=== PATIENT | male | born 1980 | race Caucasian/White ===

== ENCOUNTER 2021-03-10 10:01 | Inpatient (IN) ==
[2021-03-10] MEDS ORDERED: *HR* Propofol 200 MG/20 ML VIAL IVP ONE (11:05)
[2021-03-10] MEDS ORDERED: *HR* FentaNYL (PF) 100 MCG/2 ML VIAL ONE (11:05)
[2021-03-10] MEDS ORDERED: Lidocaine -MPF 2% 5 ML VIAL ONE (11:05)
[2021-03-10] MEDS ORDERED: *HR* Midazolam HCl 2 MG/2 ML VIAL ONE (11:05)
[2021-03-10] MEDS ORDERED: Albuterol 2.5 MG/3 ML NEBULIZER IH ONE (11:15)
[2021-03-10] MEDS ORDERED: *HR* OxyCODONE Immed Rel 5 MG TABLET PO ONE (11:15)
[2021-03-10] MEDS ORDERED: *HR* HYDROmorphone PF 0.5 MG/0.5 ML SYRINGE IVP PRN (11:15)
[2021-03-10] MEDS ORDERED: *HR* FentaNYL (PF) 100 MCG/2 ML VIAL IVP PRN (11:15)
[2021-03-10] MEDS ORDERED: Ondansetron 4 MG/2 ML VIAL IVP PRN ×2 (11:15→13:31)
[2021-03-10] MEDS ORDERED: Lidocaine/EPI 1:100k 1% 30 ML VIAL ONE (11:38)
[2021-03-10] MEDS ORDERED: Vancomycin 1,000 MG VIAL ONE (12:11)
[2021-03-10] MEDS ORDERED: Ketamine HCL *QUVA* 50mg (1mL) SYRINGE ONE (12:24)
[2021-03-10] MEDS ORDERED: *HR* HYDROMORPHONE 2 MG/ML VIAL ONE (12:39)
[2021-03-10] MEDS ORDERED: Ondansetron 4 MG/2 ML VIAL ONE (12:47)
[2021-03-10] MEDS ORDERED: Ketorolac 30 MG/ML VIAL ONE (12:47)
[2021-03-10] MEDS ORDERED: Naloxone 0.4 MG/ML INJ IVP PRN ×2 (13:05→13:31)
[2021-03-10] MEDS ORDERED: HYDROcodone BIT/Homatropine 5 MG TABLET PO PRN (13:05)
[2021-03-10] MEDS ORDERED: *HR* Promethazine 25 MG/ML VIAL IM PRN (13:31)
[2021-03-10] MEDS ORDERED: MOM Conc 10 ML UD.LIQ PO PRN (13:31)
[2021-03-10] MEDS ORDERED: Sennosides 8.6 MG TABLET PO PRN (13:31)
[2021-03-10] MEDS ORDERED: Ketorolac 30 MG/ML VIAL IVP PRN (13:31)
[2021-03-10 13:44] LABS: Source,Synovial Fluid right knee
[2021-03-10 14:37] LABS: Color,Synovial Fluid Straw (Straw)
[2021-03-10 14:38] LABS: Appearance,Synovial Fluid Cloudy (Clear-Hazy)
[2021-03-10] MEDS: *HR* OxyCODONE Immed Rel 5 MG TABLET PO PRN ×2 (14:55→23:53)
[2021-03-10] MEDS ORDERED: Lidocaine -MPF 1% 5 ML AMPUL INFILT ONE (17:10)
[2021-03-10] MEDS: Cefepime HCl 2,000 MG in 0.9 % Sodium Chloride Mini Bag 100 ML IVPB SCH ×2 (17:37→23:53)
[2021-03-10] MEDS: Ascorbic Acid 500 MG TABLET PO SCH (17:37)
[2021-03-10] MEDS: Ringers Solution, Lactated 1,000 ML IVC SCH (17:39)
[2021-03-10] MEDS: Aspirin Enteric Coated 81 MG Tablet PO SCH (20:32)
[2021-03-11 05:02] LABS: White Blood Count 7.1 K/mcL (4.3-11.1)
[2021-03-11 05:03] LABS: Basophils % 0.1 %; Hematocrit 35.8 % (37.5-50.1); Hemoglobin 11.3 g/dL (12.9-16.9); Immature Granulocytes % 0.3 % (0-4); Lymphocytes # 0.9 K/mcL (0.6-4.6); Lymphocytes % 12.9 %; Mean Corpuscular HGB Conc 31.6 g/dL (31.6-35.5); Mean Corpuscular Hemoglobin 26.7 pg (28.0-33.3); Mean Corpuscular Volume 84.6 fL (83.0-100.0); Mean Platelet Volume 10.9 fL (9.4-12.4); Monocytes # 0.4 K/mcL (0.0-1.3); Monocytes % 6.1 %; Neutrophils # 5.7 K/mcL (1.6-8.9); Platelet Count 284 K/mcL (140-400); Red Blood Count 4.23 M/mcL (4.19-5.50); Red Cell Distribution Width 13.4 % (11.5-14.5); Segmented Neutrophils % 80.6 %
[2021-03-11 05:18] LABS: BUN/Creatinine Ratio 26 (6-26); Blood Urea Nitrogen 19 mg/dL (6-20); Calcium 9.5 mg/dL (8.6-10.3); Carbon Dioxide 28 mEq/L (23-29); Chloride 104 mEq/L (98-107); Glucose 138 mg/dL (70-105); Osmolality,Calculated 288 (280-300); Potassium 4.5 mEq/L (3.5-5.1); Sodium 137 mEq/L (136-145); eGFR For African Americans > 60 (> 60); eGFR For Non-African Americans > 60 (> 60)
[2021-03-11] MEDS ORDERED: Multivit/Ca/Min/Fe/FA 1 TAB TABLET PO SCH (09:00)
[2021-03-11] MEDS: Aspirin Enteric Coated 81 MG Tablet PO SCH (10:10)
[2021-03-11] MEDS: Ascorbic Acid 500 MG TABLET PO SCH (10:14)
[2021-03-11] MEDS: *HR* OxyCODONE Immed Rel 5 MG TABLET PO PRN (10:14)
[2021-03-11] MEDS ORDERED: levoFLOXacin 750 MG/150 ML 750 MG/150 ML BAG IVPB SCH (10:15)
[2021-03-11] MEDS: Ringers Solution, Lactated 1,000 ML IVC SCH (11:05)
[2021-03-11 11:21] VITALS: BP 147/83; PULSE 68; TEMP 97.9; O2SAT 98
== END 2021-03-11 17:02 | disposition home health service (06) | DRG 344 ==
LOC: 4WAOSI 10:01 → SDCAOSI 10:01 → 4WAOSI 13:50
PROVIDERS: ADMIT Internal Medicine; ATTEND Internal Medicine